=== PATIENT | female | born 1935 | race Caucasian/White ===

== ENCOUNTER 2019-06-09 01:52 | Emergency (ER) | payer MEDICARE ==
[2019-06-09] MEDS ORDERED: Tetan/Diph/Pertus SYR(Tdap)* 0.5 ML SYR(BOOSTRIX) use SYR contains LATEX IM ONE (03:04)
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
[2019-06-09 03:31] VITALS: BP 129/69
== END 2019-06-09 03:29 | disposition home or self-care (01) ==
LOC: ED 01:52
DX: S09.90XA Unspecified injury of head, initial encounter (principal); S01.01XA Laceration without foreign body of scalp, initial encounter; W19.XXXA Unspecified fall, initial encounter; Y92.9 Unspecified place or not applicable; E78.00 Pure hypercholesterolemia, unspecified; I10 Essential (primary) hypertension
CPT/HCPCS: 12001; 90471; 90715; 99284

== ENCOUNTER 2019-08-15 21:59 | Emergency (ER) | payer MEDICARE ==
[2019-08-16] MEDS ORDERED: traMADol TAB* 50 MG PO ONE (00:03)
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
[2019-08-16 00:39] VITALS: BP 153/59
== END 2019-08-16 00:40 | disposition home or self-care (01) ==
LOC: ED 21:59
DX: S52.201A Unspecified fracture of shaft of right ulna, initial encounter for closed fracture (principal); W19.XXXA Unspecified fall, initial encounter; Y92.9 Unspecified place or not applicable; E78.00 Pure hypercholesterolemia, unspecified; E03.9 Hypothyroidism, unspecified
CPT/HCPCS: 99282; A9270-GY